=== PATIENT | female | born 2000 | race African-American/Black ===

== ENCOUNTER 2022-05-12 03:53 | Inpatient (IN) | payer OTHER ==
[2022-05-12 04:22] VITALS: BMI 28.9
[2022-05-12] MEDS ORDERED: Ondansetron PF 4 MG/2 ML Vial IVP PRN ×3 (04:26→10:35)
[2022-05-12] MEDS ORDERED: Carboprost 250 MCG/ML AMP IM PRN (04:26)
[2022-05-12] MEDS ORDERED: Methylergonovine 0.2 MG/ML VIAL IM PRN (04:26)
[2022-05-12] MEDS ORDERED: Butorphanol Tartrate 1 MG/ML VIAL SLOW IVP PRN (04:26)
[2022-05-12] MEDS ORDERED: Lidocaine 1% (PF) 30 ML VIAL SC PRN (04:26)
[2022-05-12] MEDS ORDERED: Ibuprofen 800 MG TAB PO PRN (04:26)
[2022-05-12] MEDS ORDERED: Penicillin G Potassium 5 MILL.UNITS VIAL ONE (04:26)
[2022-05-12] MEDS ORDERED: Diphenoxylate HCl/Atropine Tablet PO PRN (04:26)
[2022-05-12] MEDS ORDERED: Acetaminophen 500 MG TAB PO PRN (04:26)
[2022-05-12] MEDS ORDERED: Misoprostol 200 MCG TAB PR PRN (04:26)
[2022-05-12] MEDS ORDERED: Promethazine HCl 25 MG/ML VIAL IM PRN ×3 (04:26→10:35)
[2022-05-12] MEDS ORDERED: hydrALAZINE 20 MG/ML VIAL SLOW IVP PRN ×2 (04:26→10:35)
[2022-05-12] MEDS: Lactated Ringer's 1,000 ML IV SCH ×2 (04:30→08:08)
[2022-05-12] MEDS ORDERED: NS w/ Oxytocin 30 units 500 ML IV SCH ×2 (04:30→10:35)
[2022-05-12] MEDS ORDERED: Penicillin G Potassium 5 MILL.UNITS in Sodium Chloride 0.9% 100 ML IVPB SCH (04:30)
[2022-05-12 05:18] LABS: Hemoglobin 11.7 g/dL (12.0-15.5); Mean Corpuscular HGB CONC 34.9 g/dL (32.0-36.0); Mean Corpuscular Hemoglobin 29.5 pg (27.0-33.0); Mean Corpuscular Volume 84.4 fl (81.6-98.3); Mean Platelet Volume 9.7 fl (7.4-10.4); Platelet Count 233 10x3/uL (150-450); RBC Distribution Width 13.6 % (11.5-14.5); Red Blood Cell (RBC) Count 3.97 10x6/uL (3.90-5.03); White Blood Cell (WBC) Count 9.5 10x3/uL (3.5-10.5)
[2022-05-12 05:53] LABS: Hep B Surf Ag Non-Reactive S/CO (NonReactive)
[2022-05-12 05:59] LABS: HBSAg Index 0.21 S/CO (0-0.99)
[2022-05-12] MEDS ORDERED: Lactated Ringer's 500 ML IV PRN (06:06)
[2022-05-12] MEDS ORDERED: Acetaminophen 325 MG TAB PO PRN (06:06)
[2022-05-12] MEDS ORDERED: Naloxone HCl 0.4 mg/ml Vial IVP PRN ×2 (06:06)
[2022-05-12] MEDS ORDERED: Moisturizing Cream (Eucerin) 113 GM JAR TOP PRN (06:06)
[2022-05-12] MEDS ORDERED: diphenhydrAMINE 50 MG/ML VIAL IVP PRN (06:06)
[2022-05-12] MEDS ORDERED: ePHEDrine Sulfate 50 MG/10 ML VIAL SLOW IVP PRN (06:06)
[2022-05-12 06:09] LABS: Syphilis Antibody Nonreactive (Nonreactive); Syphilis Antibody Index 0.04 S/CO (<1.00 Non-Reactive)
[2022-05-12] MEDS ORDERED: Fentanyl 2 mcg/Bupivacaine 0.1% Cassette 100 ML EPIDURAL SCH (06:15)
[2022-05-12] MEDS ORDERED: Communication Order-Pharmacy FS SCH (06:15)
[2022-05-12] MEDS ORDERED: Penicillin G 2.5 MILL.units 2.5 MILL.UNITS in Premix Bag 1 BAG IVPB SCH (08:30)
[2022-05-12] MEDS ORDERED: Bupivacaine 0.25% HCL 30 ML VIAL ONE (09:00)
[2022-05-12 09:20] LABS: SARS-CoV-2 NAA Rapid Test Not Detected (NotDetected)
[2022-05-12] MEDS ORDERED: Benzocaine-Menthol 82.5 ML CAN TOP PRN (10:35)
[2022-05-12] MEDS ORDERED: Bisacodyl 10 MG SUPP PR PRN (10:35)
[2022-05-12] MEDS ORDERED: Milk Of Magnesia 30 ML UDCUP PO PRN (10:35)
[2022-05-12] MEDS ORDERED: diphenhydrAMINE 25 MG CAP PO PRN (10:35)
[2022-05-12] MEDS ORDERED: HYDROcodone/Acetaminophen 5/325 mg Tablet PO PRN ×2 (10:35)
[2022-05-12] MEDS: Ferrous Sulfate 325 MG TAB PO SCH (11:32)
[2022-05-12] MEDS: Ibuprofen 800 MG TAB PO SCH ×2 (14:31→21:11)
[2022-05-12] MEDS: Docusate 100 MG CAP PO SCH (21:11)
[2022-05-13] MEDS: Ibuprofen 800 MG TAB PO SCH ×3 (05:30→21:21)
[2022-05-13] MEDS: Ferrous Sulfate 325 MG TAB PO SCH (07:29)
[2022-05-13] MEDS: Prenatal Vitamin 1 TAB PO SCH (09:24)
[2022-05-13] MEDS: Docusate 100 MG CAP PO SCH ×2 (09:24→21:21)
[2022-05-13] MEDS ORDERED: Boostrix 0.5 ML (Tdap) VIAL IM ONE (10:35)
[2022-05-14] MEDS: Ibuprofen 800 MG TAB PO SCH ×2 (05:29→14:35)
[2022-05-14] MEDS: Ferrous Sulfate 325 MG TAB PO SCH (07:37)
[2022-05-14 08:11] VITALS: BP 103/54; TEMP 97.9
[2022-05-14] MEDS: Prenatal Vitamin 1 TAB PO SCH (08:47)
[2022-05-14] MEDS: Docusate 100 MG CAP PO SCH (08:47)
== END 2022-05-14 16:25 | disposition home or self-care (01) | DRG 807 ==
LOC: CSHLD/OP 03:53 → CSHLD 04:27 → CSHPP 11:41
PROVIDERS: ADMIT Family Medicine; ATTEND Family Medicine
PROC: 10E0XZZ Delivery of Products of Conception, External Approach (ICD-10-PCS; principal; 2022-05-12)
PROC: 0KQM0ZZ Repair Perineum Muscle, Open Approach (ICD-10-PCS; 2022-05-12)
PROC: 0UQMXZZ Repair Vulva, External Approach (ICD-10-PCS; 2022-05-12)
DX: O42.02 Full-term premature rupture of membranes, onset of labor within 24 hours of rupture (principal); Z37.0 Single live birth; O99.824 Streptococcus B carrier state complicating childbirth; Z20.822 Contact with and (suspected) exposure to COVID-19; Z3A.39 39 weeks gestation of pregnancy; O70.1 Second degree perineal laceration during delivery
CPT/HCPCS: 36415; 85027; 86780; 86850; 86900; 86901; 87340; J2540; J2590; J7120; S0020; U0002

== ENCOUNTER 2025-07-09 19:00 | Inpatient (IN) | payer OTHER ==
[2025-07-09] MEDS ORDERED: Acetaminophen 500 MG TAB PO PRN (20:40)
[2025-07-09] MEDS ORDERED: Lidocaine 1% (PF) 30 ML VIAL SC PRN (20:40)
[2025-07-09] MEDS ORDERED: hydrALAZINE 20 MG/ML VIAL SLOW IVP PRN (20:40)
[2025-07-09] MEDS ORDERED: Ondansetron PF 4 MG/2 ML Vial IVP PRN (20:40)
[2025-07-09] MEDS ORDERED: Oxytocin 30 units/NS 500 ML 500 ML IV SCH (20:45)
[2025-07-09] MEDS ORDERED: Diphenoxylate HCl/Atropine Tablet PO PRN (20:47)
[2025-07-09] MEDS ORDERED: Tranexamic Acid 1,000 MG/10 ML VIAL IVP PRN (20:47)
[2025-07-09] MEDS ORDERED: Ibuprofen 800 MG TAB PO PRN (20:47)
[2025-07-09] MEDS ORDERED: Methylergonovine 0.2 MG/ML VIAL IM PRN (20:47)
[2025-07-09] MEDS ORDERED: Carboprost 250 MCG/ML AMP IM PRN (20:47)
[2025-07-09] MEDS ORDERED: HYDROcodone/Acetaminophen 10/325 mg Tablet PO PRN (21:05)
[2025-07-09 21:14] VITALS: BMI 30.6
[2025-07-09 21:32] LABS: Hematocrit 32.7 % (34.9-44.5); Hemoglobin 11.3 g/dL (12.0-15.5); Mean Corpuscular Hemoglobin 29.2 pg (27.0-33.0); Mean Corpuscular Volume 84.5 fL (81.6-98.3); Platelet Count 208 10x3/uL (150-450); Red Blood Cell (RBC) Count 3.87 10x6/uL (3.90-5.03); White Blood Cell (WBC) Count 5.67 10x3/uL (3.5-10.5)
[2025-07-09 21:49] LABS: Hep B Surf Ag - L&D Non-Reactive S/CO (NonReactive); Syphilis Antibody Index 0.05 S/CO (<1.00 Non-Reactive)
[2025-07-10] MEDS: Oxytocin 30 units/NS 500 ML 500 ML IV SCH (04:45)
[2025-07-10] MEDS: fentaNYL/Ropivacaine Epidural 100 ML ONE (09:01)
[2025-07-10] MEDS ORDERED: diphenhydrAMINE 50 MG/ML VIAL IVP PRN (10:26)
[2025-07-10] MEDS ORDERED: Acetaminophen 325 MG TAB PO PRN (10:26)
[2025-07-10] MEDS ORDERED: Ondansetron PF 4 MG/2 ML Vial IVP PRN ×2 (10:26→15:39)
[2025-07-10] MEDS ORDERED: fentaNYL 2 mcg/Ropivacaine 0.2% Epidural 100 ML CADD EPIDURAL SCH (10:30)
[2025-07-10] MEDS ORDERED: Communication Order-Pharmacy FS SCH (10:30)
[2025-07-10] MEDS ORDERED: hydrALAZINE 20 MG/ML VIAL SLOW IVP PRN (15:39)
[2025-07-10] MEDS ORDERED: Lanolin Ointment 7 GM TUBE TOP PRN (15:39)
[2025-07-10] MEDS ORDERED: HYDROcodone/Acetaminophen 5/325 mg Tablet PO PRN (15:39)
[2025-07-10] MEDS ORDERED: diphenhydrAMINE 25 MG CAP PO PRN (15:39)
[2025-07-10] MEDS ORDERED: Bisacodyl 10 MG SUPP PR PRN (15:39)
[2025-07-10] MEDS ORDERED: Milk Of Magnesia 30 ML UDCUP PO PRN (15:39)
[2025-07-10] MEDS: Boostrix 0.5 ML (Tdap) VIAL (>/=7 yrs of age) IM ONE (16:16)
[2025-07-10] MEDS: Ferrous Sulfate 325 MG TAB PO SCH (16:17)
[2025-07-10] MEDS: Ibuprofen 800 MG TAB PO SCH (16:33)
[2025-07-12 09:52] VITALS: BP 103/64; TEMP 99.9
== END 2025-07-12 16:18 | disposition home or self-care (01) | DRG 807 ==
LOC: CSHLD 20:29 → CSHPED 07-10 15:16
PROVIDERS: ADMIT Family Medicine; ATTEND Family Medicine
PROC: 10E0XZZ Delivery of Products of Conception, External Approach (ICD-10-PCS; principal; 2025-07-10)
DX: O80 Encounter for full-term uncomplicated delivery (principal); Z37.0 Single live birth; Z3A.39 39 weeks gestation of pregnancy
CPT/HCPCS: 51702; 85027; 86780; 86850; 86900; 86901; 87340; J2590; J7120